=== PATIENT | female | born 1990 | race Caucasian/White ===

== ENCOUNTER → 2019-12-30 14:25 | Outpatient (BNVA) | payer BC, SELFPAY | PROVIDERS: Family Provider Nurse Practitioner Family; Visit Provider Nurse Practitioner Family | DX: R05 Cough (principal) | CPT/HCPCS: 87804 ==

== ENCOUNTER → 2021-11-12 15:56 | Outpatient (BNVA) | payer BC, SELFPAY | PROVIDERS: PCP Nurse Practitioner Family; Visit Provider Nurse Practitioner Women's Health | DX: N94.3 Premenstrual tension syndrome (principal); R23.2 Flushing | CPT/HCPCS: 82670; 84443 ==

== ENCOUNTER → 2022-01-20 10:48 | Outpatient (BNVA) | payer BC, SELFPAY | PROVIDERS: PCP Nurse Practitioner Family; Visit Provider Nurse Practitioner Women's Health | DX: Z01.419 Encounter for gynecological examination (general) (routine) without abnormal findings (principal) | CPT/HCPCS: 87624 ==